=== PATIENT | male | born 1960 | race Caucasian/White ===

== ENCOUNTER 2018-09-17 13:07 | Emergency (ER) | payer SELFPAY ==
[2018-09-17] MEDS ORDERED: LOSA25TA57 PO (13:10)
[2018-09-17] MEDS ORDERED: MULT1TAB64 PO (13:10)
[2018-09-17] MEDS ORDERED: METF-452 PO (13:10)
[2018-09-17] MEDS ORDERED: FLUO-201 PO (13:10)
--- NOTE | 2018-09-17 13:12 | ER Report ---
History and Physical Time Seen By MD: 13:05 HPI/ROS CHIEF COMPLAINT: Bipolar HISTORY OF PRESENT ILLNESS: This is a 58-year-old male who presents to the emergency department via [place] [employer] seeking help for his manic episode. The patient lives in [facility], left yesterday and has not been seen since, his called the [place] [employer], they contacted the [place] [employer], he was found here in town, the Police Department asked the patient if he wanted to go to the hospital for evaluation. Patient states that he did want to come in, wants to be admitted to behavioral health unit and help with his manic phase of his bipolar disease, he also has been unable to sleep. No fevers or chills. No nausea or vomiting. No other complaints. Denies suicidal or homicidal ideation. REVIEW OF SYSTEMS: Constitutional: No fever, no chills. Eyes: No discharge. ENT: No sore throat. Cardiovascular: No chest pain, no palpitations. Respiratory: No cough, no shortness of breath. Gastrointestinal: No abdominal pain, no vomiting. Genitourinary: No hematuria. Musculoskeletal: No back pain. Skin: No rashes. Neurological: No headache. Psychological: As above. Allergies: Coded Allergies: No Known Drug Allergies (Unverified , 09/17/18) Home Meds Reported Medications Multivitamin (MULTI VITAMIN DAILY) 1 Each Tablet, 1 EACH PO 09/17/18 Fluoxetine Hcl (PROZAC) 10 Mg Capsule, 10 MG PO QDAY, CAPSULE 09/17/18 Metformin Hcl (METFORMIN HCL) 1,000 Mg Tablet, 1 TAB PO BID, TAB 09/17/18 Losartan Potassium (LOSARTAN POTASSIUM) 25 Mg Tablet, 25 MG PO QDAY 09/17/18 Past Medical/Surgical History Patient has a past medical and surgical history of hypertension, hernia repair, bipolar, previous suicide attempt. Reviewed Nurses Notes: Yes Constitutional Vital Sign - Last 24 Hours 09/17/18 09/17/18 09/17/18 09/17/18 13:10 13:30 14:00 14:33 Pulse 95 93 Resp 16 B/P (MAP) 172/95 159/93 (115) 172/93 (119) 163/92 (115) Pulse Ox 92 93 77 O2 Delivery Room Air 09/17/18 14:38 Pulse 82 Pulse Ox 96 Physical Exam General Appearance: The patient is alert, has no immediate need for airway protection and no signs of toxicity. Eyes: Pupils equal and round no pallor or injection. ENT, Mouth: Mucous membranes are moist. Respiratory: There are no retractions, lungs are clear to auscultation. Cardiovascular: Regular rate and rhythm. Gastrointestinal: Abdomen is soft and non tender, no masses, bowel sounds normal. Neurological: Alert and oriented 4. Moving all extremities. Following all commands. No focal neuro deficits. Skin: Warm and dry, no rashes. Musculoskeletal: Neck is supple non tender. Extremities are nontender, nonswollen and have full range of motion. Psychological: Patient is forthcoming with his feelings, denies suicidal or homicidal ideation. Making good eye contact, not aggressive, very cooperative. DIFFERENTIAL DIAGNOSIS: After history and physical exam differential diagnosis was considered for bipolar, homicidal and suicidal ideation. Medical Decision Making Data Points Result Diagram: 09/17/18 1350 09/17/18 1350 Laboratory Hematology Test 09/17/18 13:50 09/17/18 14:34 Red Blood Count 4.60 M/uL (4.00-5.60) Mean Corpuscular Volume 95.4 fL (80.0-96.0) Mean Corpuscular Hemoglobin 31.5 pg (26.0-33.0) Mean Corpuscular Hemoglobin Concent 33.0 g/dL (32.0-36.0) Red Cell Distribution Width 13.8 % (11.5-14.5) Mean Platelet Volume 8.3 fL (7.2-11.1) Neutrophils (%) (Auto) 62.5 % (39.4-72.5) Lymphocytes (%) (Auto) 24.9 % (17.6-49.6) Monocytes (%) (Auto) 10.3 % (4.1-12.4) Eosinophils (%) (Auto) 1.7 % (0.4-6.7) Basophils (%) (Auto) 0.6 % (0.3-1.4) Nucleated RBC Relative Count (auto) 0.0 /100WBC Neutrophils # (Auto) 5.6 K/uL (2.0-7.4) Lymphocytes # (Auto) 2.2 K/uL (1.3-3.6) Monocytes # (Auto) 0.9 K/uL (0.3-1.0) Eosinophils # (Auto) 0.2 K/uL (0.0-0.5) Basophils # (Auto) 0.0 K/uL (0.0-0.1) Nucleated RBC Absolute Count (auto) 0.00 K/uL Sodium Level 137 mmol/L (137-145) Potassium Level 3.9 mmol/L (3.5-5.0) Chloride Level 100 mmol/L (98-107) Carbon Dioxide Level 25 mmol/L (22-30) Blood Urea Nitrogen 11 mg/dl (9-21) Creatinine 0.80 mg/dl (0.66-1.25) Glomerular Filtration Rate Calc > 60.0 Random Glucose 153 mg/dl (75-110) Calcium Level 9.2 mg/dl (8.4-10.2) Magnesium Level 2.2 mg/dl (1.7-2.2) Total Bilirubin 0.7 mg/dl (0.2-1.3) Aspartate Amino Transf (AST/SGOT) 32 U/L (0-35) Alanine Aminotransferase (ALT/SGPT) 41 U/L (0-56) Alkaline Phosphatase 55 U/L (0-126) Total Protein 7.9 g/dl (6.3-8.2) Albumin 4.5 g/dl (3.5-5.0) Thyroid Stimulating Hormone (TSH) 1.47 uIU/ml (0.46-4.68) Salicylates Level < 10 mg/L Salicylate Last Dose Date unk Acetaminophen Level < 10 ug/ml Serum Alcohol < 10 mg/dl Urine Color Straw Urine Clarity Clear Urine pH 7.0 pH (4.8-9.5) Urine Specific [place] 1.003 Urine Protein Negative mg/dL (NEGATIVE) Urine Glucose (UA) Negative mg/dL (NEGATIVE) Urine Ketones Negative mg/dL (NEGATIVE) Urine Blood Negative (NEGATIVE) Urine Nitrite Negative (NEGATIVE) Urine Bilirubin Negative (NEGATIVE) Urine Urobilinogen Negative mg/dL (0.2-1.9) Urine Leukocyte Esterase Negative (NEGATIVE) Urine RBC <1 /HPF (0-2/HPF) Urine WBC <1 /HPF (0-5/HPF) Urine Squamous Epithelial Cells Few /LPF (</=FEW) Urine Bacteria Negative /HPF (NONE-FEW) Urine Mucus None /HPF (NONE-FEW) Urine Opiates Screen Negative Urine Barbiturates Screen Negative Ur Tricyclic Antidepressants Screen Negative Urine Phencyclidine Screen Negative Urine Amphetamines Screen Negative Urine Benzodiazepines Screen Negative Urine Cocaine Screen Negative Urine Cannabinoids Screen Negative Chemistry Test 09/17/18 13:50 09/17/18 14:34 White Blood Count 8.9 k/uL (4.5-11.0) Red Blood Count 4.60 M/uL (4.00-5.60) Hemoglobin 14.5 g/dL (14.0-18.0) Hematocrit 43.9 % (42.0-52.0) Mean Corpuscular Volume 95.4 fL (80.0-96.0) Mean Corpuscular Hemoglobin 31.5 pg (26.0-33.0) Mean Corpuscular Hemoglobin Concent 33.0 g/dL (32.0-36.0) Red Cell Distribution Width 13.8 % (11.5-14.5) Platelet Count 244 K/uL (150-450) Mean Platelet Volume 8.3 fL (7.2-11.1) Neutrophils (%) (Auto) 62.5 % (39.4-72.5) Lymphocytes (%) (Auto) 24.9 % (17.6-49.6) Monocytes (%) (Auto) 10.3 % (4.1-12.4) Eosinophils (%) (Auto) 1.7 % (0.4-6.7) Basophils (%) (Auto) 0.6 % (0.3-1.4) Nucleated RBC Relative Count (auto) 0.0 /100WBC Neutrophils # (Auto) 5.6 K/uL (2.0-7.4) Lymphocytes # (Auto) 2.2 K/uL (1.3-3.6) Monocytes # (Auto) 0.9 K/uL (0.3-1.0) Eosinophils # (Auto) 0.2 K/uL (0.0-0.5) Basophils # (Auto) 0.0 K/uL (0.0-0.1) Nucleated RBC Absolute Count (auto) 0.00 K/uL Glomerular Filtration Rate Calc > 60.0 Calcium Level 9.2 mg/dl (8.4-10.2) Magnesium Level 2.2 mg/dl (1.7-2.2) Total Bilirubin 0.7 mg/dl (0.2-1.3) Aspartate Amino Transf (AST/SGOT) 32 U/L (0-35) Alanine Aminotransferase (ALT/SGPT) 41 U/L (0-56) Alkaline Phosphatase 55 U/L (0-126) Total Protein 7.9 g/dl (6.3-8.2) Albumin 4.5 g/dl (3.5-5.0) Thyroid Stimulating Hormone (TSH) 1.47 uIU/ml (0.46-4.68) Salicylates Level < 10 mg/L Salicylate Last Dose Date unk Acetaminophen Level < 10 ug/ml Serum Alcohol < 10 mg/dl Urine Color Straw Urine Clarity Clear Urine pH 7.0 pH (4.8-9.5) Urine Specific [place] 1.003 Urine Protein Negative mg/dL (NEGATIVE) Urine Glucose (UA) Negative mg/dL (NEGATIVE) Urine Ketones Negative mg/dL (NEGATIVE) Urine Blood Negative (NEGATIVE) Urine Nitrite Negative (NEGATIVE) Urine Bilirubin Negative (NEGATIVE) Urine Urobilinogen Negative mg/dL (0.2-1.9) Urine Leukocyte Esterase Negative (NEGATIVE) Urine RBC <1 /HPF (0-2/HPF) Urine WBC <1 /HPF (0-5/HPF) Urine Squamous Epithelial Cells Few /LPF (</=FEW) Urine Bacteria Negative /HPF (NONE-FEW) Urine Mucus None /HPF (NONE-FEW) Urine Opiates Screen Negative Urine Barbiturates Screen Negative Ur Tricyclic Antidepressants Screen Negative Urine Phencyclidine Screen Negative Urine Amphetamines Screen Negative Urine Benzodiazepines Screen Negative Urine Cocaine Screen Negative Urine Cannabinoids Screen Negative Toxicology Test 09/17/18 13:50 09/17/18 14:34 Salicylates Level < 10 mg/L Salicylate Last Dose Date unk Acetaminophen Level < 10 ug/ml Serum Alcohol < 10 mg/dl Urine Opiates Screen Negative Urine Barbiturates Screen Negative Ur Tricyclic Antidepressants Screen Negative Urine Phencyclidine Screen Negative Urine Amphetamines Screen Negative Urine Benzodiazepines Screen Negative Urine Cocaine Screen Negative Urine Cannabinoids Screen Negative Urinalysis Test 09/17/18 14:34 Urine Color Straw Urine Clarity Clear Urine pH 7.0 pH (4.8-9.5) Urine Specific [place] 1.003 Urine Protein Negative mg/dL (NEGATIVE) Urine Glucose (UA) Negative mg/dL (NEGATIVE) Urine Ketones Negative mg/dL (NEGATIVE) Urine Blood Negative (NEGATIVE) Urine Nitrite Negative (NEGATIVE) Urine Bilirubin Negative (NEGATIVE) Urine Urobilinogen Negative mg/dL (0.2-1.9) Urine Leukocyte Esterase Negative (NEGATIVE) Urine RBC <1 /HPF (0-2/HPF) Urine WBC <1 /HPF (0-5/HPF) Urine Squamous Epithelial Cells Few /LPF (</=FEW) Urine Bacteria Negative /HPF (NONE-FEW) Urine Mucus None /HPF (NONE-FEW) ED Course/Re-evaluation ED Course The patient was admitted to room. A history and physical obtained. Differential diagnoses were considered. A CBC, CMP and psychiatric were collected, a urine tox screen and UA were collected, lab studies unremarkable, negative tox screen. The patient was evaluated by a clinical neuropsychologist. I did review the laboratory studies with the patient. I spoke with Dr. Villafana, the therapist literacy education professor, she is accepted the patient in the behavioral health unit. Patient will be admitted on a voluntary basis for bipolar poli. The patient did remain cooperative while in the emergency department. 09/17/2018 3:00:[address] Villafana was contacted, and we discussed the patient's case, she is accepting the patient in the behavioral health unit. Patient is agreeable has signed in voluntarily, patient will be admitted for poli. Decision to Disposition Date: Sep 17, 2018 Decision to Disposition Time: 14:56 Depart Departure Latest Vital Signs Vital Signs Date Time Temp Pulse Resp B/P (MAP) Pulse Ox O2 Delivery O2 Flow Rate FiO2 09/17/18 14:38 82 96 09/17/18 14:33 163/92 (115) 09/17/18 13:10 16 Room Air Impression: Primary Impression: Bipolar 1 disorder with moderate poli Condition: Improved Disposition: XFER TO [facility] JEFF BEEBE MANAGER PIPELINE-BC Sep 17, 2018 13:12
[2018-09-17 14:11] LABS: PLATELET COUNT, AUTOMATED 244 K/uL (150-450)
[2018-09-17 14:33] VITALS: BP 163/92
== END 2018-09-17 15:31 ==
LOC: ER 13:25
DX: F31.89 Other bipolar disorder (principal); I10 Essential (primary) hypertension
CPT/HCPCS: 36415; 80305; 80320; 80329; 81001; 82040; 82247; 82310; 82374; 82435; 82565; 82947; 83735; 84075; 84132; 84155; 84295; 84443; 84450; 84460; 84520; 85025; 99284

== ENCOUNTER 2018-09-17 15:22 | Inpatient (IN) | payer SELFPAY ==
[~2018-09-17] VITALS: Ht 172.7 cm; Wt 115.7 kg
[~2018-09-17 15:22] MED LIST: FLUO-201 PO; LOSA25TA57 PO; METF-452 PO; MULT1TAB64 PO
[2018-09-17] MEDS ORDERED: OLANZapine 10 MG VIAL IM ONLY PRN (16:10)
[2018-09-17] MEDS ORDERED: diphenhydrAMINE 50 MG/ML VIAL IM PRN (16:10)
[2018-09-17] MEDS ORDERED: MAG HYD/AL HYD/SIMETH 30ML UDC PO PRN (16:10)
[2018-09-17] MEDS ORDERED: NICOTINE POLACRILEX 4 MG LOZG PO PRN (16:10)
[2018-09-17] MEDS ORDERED: ACETAMINOPHEN 325 MG TAB PO PRN (16:10)
[2018-09-17] MEDS ORDERED: LORazepam 2 MG/ML VIAL IM PRN (16:10)
[2018-09-17] MEDS ORDERED: WATER STERILE 10 ML VIAL IM ONLY PRN (16:10)
[2018-09-17 16:41] VITALS: BP 159/90
[2018-09-17] MEDS: PRAVASTATIN SOD 20 MG TAB PO SCH (20:30)
[2018-09-17] MEDS: DIVALPROEX PO SCH (20:30)
[2018-09-17] MEDS: OLANZapine 5 MG TAB PO PRN (20:46)
[2018-09-17] MEDS: metFORMIN HCL 500 MG TAB PO SCH (20:46)
[2018-09-18] MEDS: OLANZapine 5 MG TAB PO PRN (02:38)
[2018-09-18 04:01] VITALS: BP 123/82
[2018-09-18] MEDS ORDERED: metFORMIN HCL 500 MG TAB PO SCH (08:00)
[2018-09-18] MEDS: LOSARTAN POTASSIUM 50 MG TAB PO SCH (08:36)
[2018-09-18] MEDS: MULTIVITAMINS PO SCH (08:36)
[2018-09-18] MEDS: metFORMIN HCL 500 MG TAB PO SCH ×2 (08:36→17:27)
[2018-09-18 10:05] VITALS: BP 132/81
[2018-09-18] MEDS: DIVALPROEX SOD DR 500 MG TAB PO SCH (12:30)
--- NOTE | 2018-09-18 20:06 | HISTORY AND PHYSICAL ---
DATE OF ADMISSION: September 17, 2018 ATTENDING PHYSICIAN Kimberly Villafana MD The patient was interviewed on September 18, 2018, at 10 a.m. for this history and physical. CHIEF COMPLAINT "I came at the request of my ." HISTORY OF PRESENT ILLNESS This is one of up to 20 psychiatric hospitalizations for this 58-year-old man who has a history of bipolar disorder and who is here as a voluntary patient. The patient was doing reasonably well and compliant with his medications which included Depakote, Saphris, and Prozac until about the beginning of August, which was a month ago. He stated sleeping poorly and staying up at night doing projects in the garage. His said he was getting a little bit more irritable, and they were quarreling more. He had a positive sleep apnea test and started a CPAP machine in the middle of August, and he has been struggling to get used to that. This weekend, he went over to his local hospital in [place] where he and his live, and they found that his Depakote level was low, and therefore, they increased his dose to 750 mg at bedtime. His says that on Saturday, he left and was gone all day shopping in various stores attempting to buy a new ocean clam boat captain which they did not need, attempting to buy a car which she says they did not need. He brought her hollis, and she says this was significantly increased spending and increased activity for him. 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 He says that he got in his car and was "following the setting sun by driving west," and he ended up in [place] Saturday night. Saturday, he drove over to [place] and tells us that he felt like he was on a mission to survey some properties. He then drove down to [place] and did call his and told her that he was going to buy a car. His sent the police, and he was picked up at a car dealership and brought to the Emergency Room. He acknowledges that he has had racing thoughts, difficulty sleeping. He has been doing six different things at once, staying up all night, unpacking all of his hobby stuff in the garage, including his [employer] radio equipment. He says that he feels he has been given special missions to drive around the state and survey. He denies hearing voices, but says he feels a pressure in his head. He acknowledges that he has been increasingly more noncompliant with his medications, taking them sporadically over the past two weeks. PAST PSYCHIATRIC HISTORY He was diagnosed with bipolar disorder in his mid 30s. He believes he may have been hospitalized as many as 20 times including hospitalizations in [place], [place], [place], [place], [place], [place]. Most recently, he has been seeing a nurse practitioner in [place], who has been prescribing his medication, and her name is Aretha Grangerjackie. His most recent admission prior to this one was one year ago about this time of year when he was hospitalized in [facility] in [place]. His says that ever since that hospitalization one year ago, he has been doing okay, but never fully returned to his best baseline. FAMILY PSYCHIATRIC HISTORY It is unknown if there is any family history for psychiatric illness. PAST MEDICAL HISTORY 1. Hypertension. 2. Prediabetic. 3. Surgery as an infant for hernia. 4. Surgery as an for a hydrocele. 5. Recent diagnosis of sleep apnea, uses CPAP machine. CURRENT MEDICATIONS 1. Saphris, dose unknown. 2. Depakote 750 mg at bedtime. 3. Hydroxyzine 20 mg at bedtime. 4. Fluoxetine 40 mg a.m. 5. Losartan 100 mg a.m. 6. Metformin 1000 mg b.i.d. 7. Pravastatin 20 mg at bedtime. ALLERGIES NKDA. SOCIAL HISTORY The patient was born in [place], [place], to parents who were . He has one half brother, one sister, and one brother. His father was an aircraft structural repairer. At the age of 6, he moved to [place]. He graduated high school in [place]. He did two years at [employer]. He remained unmarried until the age of 44. He has no biological children. He is currently to his for the past 14 years. He has four stepchildren and several grandchildren and great-grandchildren. He reports a good marriage and that his is supportive. 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 LEGAL HISTORY He has been on emergency detentions in the past, but never arrested for criminal activity. SUBSTANCE ABUSE HISTORY He consumes approximately one beer two or three times per week and one shot of hard liquor about once or twice a week. In the past, he used marijuana until he was in his 40s. He has no other history of substance abuse. PHYSICAL EXAMINATION Please see the ER physician's note. VITAL SIGNS: Temperature 98.6, pulse 97, respiratory rate 20, blood pressure 159/90, pulse ox is 93% on room air. LABORATORY DATA Sodium low, 136, random glucose high 140. The remainder of his chemistry panel is normal. Hemoglobin A1c high, 6.2. CBC within normal limits. Urinalysis within normal limits. Toxicology screen is negative. Serum alcohol is less than 10. MENTAL STATUS EXAMINATION He is a slightly disheveled, overweight man with a scruffy wright who is cooperative and has fair eye contact. His speech was not pressured and was normal in rate, tone, and volume. He reported a good mood, and his affect was somewhat hyperthymic. His thought process was quite circumstantial to tangential. He had a very hard time staying on topic. Thought content: He denied auditory hallucinations, but immediately said, "but there is a pressure in my head." He denies visual hallucinations. He has grandiose delusions about a mission that he has been sent on. There is no suicidal ideation and no homicidal ideation. He is alert and fully oriented to person, place, time, and situation. Memory was fairly intact for immediate, recent, and remote recall. Intelligence is average based on interview. Insight is good into having bipolar illness. Judgment is currently poor due to poli. IMPRESSION Bipolar disorder, manic phase. PLAN He was admitted to [facility]. He will attend individual and group therapies. We will increase his Depakote to 500 q.a.m. and 750 at bedtime and follow his Depakote levels. We will add Latuda 40 mg at bedtime for psychosis and for mood stability. We will discontinue Prozac, which is likely to be destabilizing his mood at this time. We will involve his in a treatment team meeting tomorrow morning, and we will have her bring his CPAP machine over so we can help him continue to get adjusted to it. His estimated length of stay is five to seven days. [facility]
[2018-09-18] MEDS: PRAVASTATIN SOD 20 MG TAB PO SCH (20:51)
[2018-09-18] MEDS: LURASIDONE 40 MG TAB PO SCH (20:52)
[2018-09-18] MEDS: DIVALPROEX PO SCH (20:52)
[2018-09-19 06:51] VITALS: BP 159/92
[2018-09-19] MEDS: MULTIVITAMINS PO SCH (08:00)
[2018-09-19] MEDS: DIVALPROEX SOD DR 500 MG TAB PO SCH (08:00)
[2018-09-19] MEDS: metFORMIN HCL 500 MG TAB PO SCH ×2 (08:00→17:11)
[2018-09-19] MEDS: LOSARTAN POTASSIUM 50 MG TAB PO SCH (08:00)
[2018-09-19 12:00] VITALS: BP 152/70
[2018-09-19] MEDS ORDERED: FLUO40CA67 PO (19:09)
[2018-09-19] MEDS ORDERED: HYDR-4225 PO (19:09)
[2018-09-19] MEDS ORDERED: DIVA500T47 PO (19:09)
[2018-09-19] MEDS ORDERED: DIVA250T33 PO (19:09)
[2018-09-19] MEDS ORDERED: LOSA100T75 PO (19:09)
--- NOTE | 2018-09-19 20:05 | BHS Progress Note ---
S - Subjective Progress Notes Subjective Pt seen in treatment team meeting with his and stepson present. Pt still showing manic symptoms, with grandiose delusions r.e. spirituality. "I am more inspired today spiritually I feel like when you just got out of the baptismal font." Asking his "Am I the energizer bunny?" "My sense of humor is still too high." Tolerating latuda and increased depakote well so far, a little sedated this am but not too bad-- participating well in our meeting. Did use C- Pap last night and slept a little better last night until 3:30 am when he woke up and couldn't fall back to sleep. Family indicating pt's hospitalizations have always been due to poli, but then later when he gets home he tends to "land on the depressed side." Then he gets put on an antidepressant which then seems to lead to mood instability... Will continue current meds for poli now; consider adding lamictal once poli resolves. Hgb A1c was 6.2. Will check labs again Saturday morning including valproate level. Suicidal Ideation: None Homicidal Ideation: None [facility] - Objective Physical Exam Vital Signs Vital Signs 09/19/18 12:00 Temp 98.6 Pulse 74 Resp 18 B/P (MAP) 152/70 (97) Pulse Ox 93 O2 Delivery Room Air Muscle Strength and Tone: WNL Gait and Station: Steady [facility] Medications Reviewed: Side Effects, Benefits of Medication, Risks Allergies Reviewed: Yes Mental Status Exam General Appearance: Casual, Well Groomed, Cooperative, Polite, Good Interaction Speech: Clear, Spontaneous, Normal Rate, Normal Rhythm, Normal Volume, Normal Tone Mood: Hyperthymic Affect: Full and Appropriate, Other (hyperthymic) Thought Process: Other (circumstantial) Thought Content: No Suicidal Ideation, No Homicidal Ideation; Delusions (voodoo preoccupation, grandiose, "mission to complete the survey.."); No Auditory Halllucinations, No Visual Hallucinations, No Thought Broadcasting, No Ideas of Reference, No Obsessions, No Compulsions, No Other Sensorium: Clear Cognition: Alert & Oriented-Person, Alert & Oriented-Place, Alert & Oriented- Time, [id number] Memory: Immediate, Recent, Remote Intelligence: Average Insight Judgment: Poor (due to poli) Result Diagram: 09/18/18 0637 Lab Hematology Test 09/18/18 06:37 Sodium Level 136 mmol/L (137-145) Potassium Level 4.6 mmol/L (3.5-5.0) Chloride Level 105 mmol/L (98-107) Carbon Dioxide Level 23 mmol/L (22-30) Blood Urea Nitrogen 11 mg/dl (9-21) Creatinine 0.80 mg/dl (0.66-1.25) Glomerular Filtration Rate Calc > 60.0 Random Glucose 140 mg/dl (75-110) Hemoglobin A1c 6.2 % (4.6-6.0) Calcium Level 9.0 mg/dl (8.4-10.2) Total Bilirubin 0.5 mg/dl (0.2-1.3) Aspartate Amino Transf (AST/SGOT) 21 U/L (0-35) Alanine Aminotransferase (ALT/SGPT) 35 U/L (0-56) Alkaline Phosphatase 42 U/L (0-126) Total Protein 6.7 g/dl (6.3-8.2) Albumin 3.9 g/dl (3.5-5.0) Chemistry Test 09/18/18 06:37 Glomerular Filtration Rate Calc > 60.0 Hemoglobin A1c 6.2 % (4.6-6.0) Calcium Level 9.0 mg/dl (8.4-10.2) Total Bilirubin 0.5 mg/dl (0.2-1.3) Aspartate Amino Transf (AST/SGOT) 21 U/L (0-35) Alanine Aminotransferase (ALT/SGPT) 35 U/L (0-56) Alkaline Phosphatase 42 U/L (0-126) Total Protein 6.7 g/dl (6.3-8.2) Albumin 3.9 g/dl (3.5-5.0) [facility] Assessment and Plan [id number] Encounter Date: Sep 19, 2018 [id number] Encounter Time: 11:00 [facility] Plan: Necessary Precautions, Individual/Group Therapy, Admin/Titrate Meds, Educate Patient Tobacco Medications: Not Appropriate Condition Multpiple Antipsychotics Used: No Problems: (1) Bipolar 1 disorder with moderate poli Status: Acute VLADIMIR FRITZ MD Sep 19, 2018 20:05
[2018-09-19] MEDS: PRAVASTATIN SOD 20 MG TAB PO SCH (20:51)
[2018-09-19] MEDS: DIVALPROEX PO SCH (20:52)
[2018-09-19] MEDS: LURASIDONE 40 MG TAB PO SCH (20:52)
[2018-09-20] MEDS: LORazepam 1 MG TAB PO PRN ×2 (00:24→22:45)
[2018-09-20 00:29] VITALS: BP 153/80
[2018-09-20] MEDS: MULTIVITAMINS PO SCH (07:48)
[2018-09-20] MEDS: metFORMIN HCL 500 MG TAB PO SCH ×2 (07:48→17:23)
[2018-09-20] MEDS: DIVALPROEX SOD DR 500 MG TAB PO SCH (07:48)
[2018-09-20] MEDS: LOSARTAN POTASSIUM 50 MG TAB PO SCH (07:48)
--- NOTE | 2018-09-20 09:03 | BHS Progress Note ---
BHS - Subjective Progress Notes Subjective "I'm optimistic. I have a little bit of nervousness because I talked to my employer and with my episode of poli I must not have told them about the time I wanted off." Works at [employer] in [place] since September 2014, had two conversations with management yesterday, may have to take day off without pay Denies depression or thoughts of hurting self Anxiety 09/17 Denies mood swings, racing thoughts, denies auditory/visual hallucinations is good support system Suicidal Ideation: None Homicidal Ideation: None BHS - Objective Physical Exam Vital Signs Allergies Coded Allergies No Known Drug Allergies (Unverified09/17/18) Deferred Medications (Trade) Dose Ordered Sig/Kenneth Route PRN Reason Start Time Stop Time Status Last Admin Dose Admin Divalproex Sodium (Depakote Dr 500 Mg Tab (Or Equiv)) 500 mg QAM PO 09/18/18 12:25 10/18/18 12:24 09/20/18 07:48 Divalproex Sodium (Depakote Dr 500 Mg Tab (Or Equiv)/ Depakote Dr 250 Mg Tab (Or Equiv)) 750 mg QHS PO 09/17/18 21:00 10/17/18 20:59 09/19/18 20:52 Lorazepam (Ativan(*) 1 Mg Tab (Or Equiv)) 2 mg Q6H PRN PO ANXIETY/SLEEP 09/17/18 16:15 10/01/18 16:14 09/20/18 00:24 Losartan Potassium (Cozaar 50 Mg Tab (Or Equiv)) 100 mg QDAY PO 09/18/18 09:00 10/18/18 08:59 09/20/18 07:48 Lurasidone HCl (Latuda 40 Mg Tab(Or Equiv)) 40 mg QHS PO 09/18/18 21:00 10/18/18 20:59 09/19/18 20:52 Metformin HCl (Glucophage(*) 500 Mg Tab (Or Equiv)) 1,000 mg BIDBS PO 09/17/18 21:00 10/17/18 20:59 09/20/18 07:48 Multivitamins (Thera-M Enhanced Tab (Or Equiv)) 1 each QDAY PO 09/18/18 09:00 10/18/18 08:59 09/20/18 07:48 Olanzapine (zyPREXA (OR EQUIV)) 10 mg Q6H PRN PO AGITATION/SLEEP 09/17/18 16:15 10/17/18 16:14 09/18/18 02:38 Pravastatin Sodium (Pravachol 20 Mg Tab (Or Equiv)) 20 mg HS PO 09/17/18 21:00 10/17/18 20:59 09/19/18 20:51 Muscle Strength and Tone: WNL Gait and Station: Steady [facility] Medications Reviewed: Side Effects, Benefits of Medication, Risks Allergies Reviewed: Yes Mental Status Exam General Appearance: Casual, Well Groomed, Good Eye Contact, Cooperative, Polite, Good Interaction Speech: Clear, Spontaneous, Normal Rate, Normal Rhythm, Normal Volume, Normal Tone Mood: Euthymic; No Hyperthymic Affect: Full and Appropriate; No Other (hyperthymic) Thought Process: Organized, Logical, Goal Directed; No Other (circumstantial) Thought Content: No Suicidal Ideation, No Homicidal Ideation; Delusions (pentecostal preoccupation, grandiose, "mission to complete the survey.."); No Auditory Halllucinations, No Visual Hallucinations, No Thought Broadcasting, No Ideas of Reference, No Obsessions, No Compulsions, No Other Sensorium: Clear Cognition: Alert & Oriented-Person, Alert & Oriented-Place, Alert & Oriented-Time, Yuveo-Gbgxslsh-Gktjlipmw Memory: Immediate, Recent, Remote Intelligence: Average Insight Judgment: No Poor (due to poli); Fair Result Diagram: 09/18/18 0637 Microbiology Laboratory Tests 09/18/18 06:37 Laboratory Tests 09/18/18 06:37: Sodium Level 136, Potassium Level 4.6, Chloride Level 105, Carbon Dioxide Level 23, Blood Urea Nitrogen 11, Creatinine 0.80, Glomerular Filtration Rate Calc > 60.0, Random Glucose 140, Hemoglobin A1c 6.2, Calcium Level 9.0, Total Bilirubin 0.5, Aspartate Amino Transf (AST/SGOT) 21, Alanine Aminotransferase (ALT/SGPT) 35, Alkaline Phosphatase 42, Total Protein 6.7, Albumin 3.9 [facility] Assessment and Plan Cwcf-yo-Peyv Encounter Date: Sep 20, 2018 Nnst-cv-Rwlm Encounter Time: 09:01 [facility] Plan: Necessary Precautions, Individual/Group Therapy, Admin/Titrate Meds, Educate Patient Tobacco Medications: Not Appropriate Condition Multpiple Antipsychotics Used: No Problems: (1) Bipolar 1 disorder with moderate poli Status: Acute Condition Continue Depakote 500mg am, 750mg pm and Latuda 40mg pm Will evaluate labs 09/21/18 Continue current medications, maintain precautions Treatment team 09/22/18 MAGY ZULETA NP Sep 20, 2018 09:03
[2018-09-20 14:35] VITALS: BP 152/66
[2018-09-20] MEDS: LURASIDONE 40 MG TAB PO SCH (20:46)
[2018-09-20] MEDS: DIVALPROEX PO SCH (20:46)
[2018-09-20] MEDS: PRAVASTATIN SOD 20 MG TAB PO SCH (20:46)
[2018-09-20 22:30] VITALS: BP 158/80
[2018-09-21 04:46] VITALS: BP 144/87
[2018-09-21 06:32] LABS: PLATELET COUNT, AUTOMATED 220 K/uL (150-450)
[2018-09-21] MEDS: DIVALPROEX SOD DR 500 MG TAB PO SCH (08:28)
[2018-09-21] MEDS: metFORMIN HCL 500 MG TAB PO SCH ×2 (08:28→17:51)
[2018-09-21] MEDS: LOSARTAN POTASSIUM 50 MG TAB PO SCH (08:28)
[2018-09-21] MEDS: MULTIVITAMINS PO SCH (08:28)
--- NOTE | 2018-09-21 11:31 | BHS Progress Note ---
S - Subjective Progress Notes Subjective "I'm doing good. I haven't felt this good in a long time." Anxiety 07/20, denies depression, anger or irritability Works at [employer] in [place] since September 2014, had two conversations with management Saturday. Sleep sufficient, energy level good, motivated to work towards discharge Denies mood swings, racing thoughts, denies auditory/visual hallucinations is good support system Suicidal Ideation: None Homicidal Ideation: None S - Objective Physical Exam Vital Signs Laboratory Tests 09/21/18 06:21 Laboratory Tests 09/18/18 06:37: Hemoglobin A1c 6.2 09/21/18 06:21: White Blood Count 7.8, Red Blood Count 4.30, Hemoglobin 13.6, Hematocrit 41.2, Mean Corpuscular Volume 95.6, Mean Corpuscular Hemoglobin 31.6, Mean Corpuscular Hemoglobin Concent 33.0, Red Cell Distribution Width 13.6, Platelet Count 220, Mean Platelet Volume 8.2, Neutrophils (%) (Auto) 53.6, Lymphocytes (%) (Auto) 33.5, Monocytes (%) (Auto) 9.1, Eosinophils (%) (Auto) 3.1, Basophils (%) (Auto) 0.7, Nucleated RBC Relative Count (auto) 0.0, Neutrophils # (Auto) 4.2, Lymphocytes # (Auto) 2.6, Monocytes # (Auto) 0.7, Eosinophils # (Auto) 0.2, Basophils # (Auto) 0.1, Nucleated RBC Absolute Count (auto) 0.00, Sodium Level 135, Potassium Level 4.2, Chloride Level 102, Carbon Dioxide Level 21, Blood Urea Nitrogen 12, Creatinine 0.80, Glomerular Filtration Rate Calc > 60.0, Random Glucose 185, Calcium Level 9.2, Total Bilirubin 0.4, Aspartate Amino Transf (AST/SGOT) 19, Alanine Aminotransferase (ALT/SGPT) 32, Alkaline Phosphatase 44, Total Protein 6.7, Albumin 3.9, Valproic Acid (Depakene) Level 75.6 Medications (Trade) Dose Ordered Sig/Kenneth Route PRN Reason Start Time Stop Time Status Last Admin Dose Admin Divalproex Sodium (Depakote Dr 500 Mg Tab (Or Equiv)) 500 mg QAM PO 09/18/18 12:25 10/18/18 12:24 09/21/18 08:28 Divalproex Sodium (Depakote Dr 500 Mg Tab (Or Equiv)/ Depakote Dr 250 Mg Tab (Or Equiv)) 750 mg QHS PO 09/17/18 21:00 10/17/18 20:59 09/20/18 20:46 Lorazepam (Ativan(*) 1 Mg Tab (Or Equiv)) 2 mg Q6H PRN PO ANXIETY/SLEEP 09/17/18 16:15 10/01/18 16:14 09/20/18 22:45 Losartan Potassium (Cozaar 50 Mg Tab (Or Equiv)) 100 mg QDAY PO 09/18/18 09:00 10/18/18 08:59 09/21/18 08:28 Lurasidone HCl (Latuda 40 Mg Tab(Or Equiv)) 40 mg QHS PO 09/18/18 21:00 10/18/18 20:59 09/20/18 20:46 Metformin HCl (Glucophage(*) 500 Mg Tab (Or Equiv)) 1,000 mg BIDBS PO 09/17/18 21:00 10/17/18 20:59 09/21/18 08:28 Multivitamins (Thera-M Enhanced Tab (Or Equiv)) 1 each QDAY PO 09/18/18 09:00 10/18/18 08:59 09/21/18 08:28 Olanzapine (zyPREXA (OR EQUIV)) 10 mg Q6H PRN PO AGITATION/SLEEP 09/17/18 16:15 10/17/18 16:14 09/18/18 02:38 Pravastatin Sodium (Pravachol 20 Mg Tab (Or Equiv)) 20 mg HS PO 09/17/18 21:00 10/17/18 20:59 09/20/18 20:46 Vital Signs Date Time Temp Pulse Resp B/P (MAP) Pulse Ox O2 Delivery O2 Flow Rate FiO2 09/21/18 04:46 98.1 88 16 144/87 (106) 92 Room Air Muscle Strength and Tone: WNL Gait and Station: Steady [facility] Medications Reviewed: Side Effects, Benefits of Medication, Risks Allergies Reviewed: Yes Mental Status Exam General Appearance: Casual, Well Groomed, Good Eye Contact, Cooperative, Polite, Good Interaction Speech: Clear, Spontaneous, Normal Rate, Normal Rhythm, Normal Volume, Normal Tone Mood: Euthymic; No Hyperthymic Affect: Full and Appropriate; No Other (hyperthymic) Thought Process: Organized, Logical, Goal Directed; No Other (circumstantial) Thought Content: No Suicidal Ideation, No Homicidal Ideation; Delusions (bahai preoccupation, grandiose, "mission to complete the survey.."); No Aud itory Halllucinations, No Visual Hallucinations, No Thought Broadcasting, No Ideas of Reference, No Obsessions, No Compulsions, No Other Sensorium: Clear Cognition: Alert & Oriented-Person, Alert & Oriented-Place, Alert & Oriented- Time, Zdive-Uzzjyghz-Cmndsqpii Memory: Immediate, Recent, Remote Intelligence: Average Insight Judgment: No Poor (due to poli); Fair Result Diagram: 09/21/1862009/21/18620 Lab Vital Signs Date Time Temp Pulse Resp B/P (MAP) Pulse Ox O2 Delivery O2 Flow Rate FiO2 09/21/18 04:46 98.1 88 16 144/87 (106) 92 Room Air BHS Assessment and Plan Omdw-ut-Gvdy Encounter Date: Sep 21, 2018 Plkw-ui-Lwcd Encounter Time: 11:04 BHS Plan: Necessary Precautions, Individual/Group Therapy, Admin/Titrate Meds, Educate Patient Tobacco Medications: Not Appropriate Condition Multpiple Antipsychotics Used: No Problems: (1) Bipolar 1 disorder with moderate poli Status: Acute Condition Continue current medication including Depakote bid, Lurasidone q pm Maintain precautions Treatment team 09/22/18 MAGY ZULETA NP Sep 21, 2018 11:31
[2018-09-21 14:50] VITALS: BP 174/88
[2018-09-21] MEDS: LURASIDONE 40 MG TAB PO SCH (20:37)
[2018-09-21] MEDS: DIVALPROEX PO SCH (20:37)
[2018-09-21] MEDS: PRAVASTATIN SOD 20 MG TAB PO SCH (20:37)
[2018-09-21 21:08] VITALS: BP 146/82
[2018-09-21] MEDS: LORazepam 1 MG TAB PO PRN (22:18)
[2018-09-22 06:19] VITALS: BP 161/85
[2018-09-22 07:48] VITALS: BP 142/86
[2018-09-22] MEDS: DIVALPROEX SOD DR 500 MG TAB PO SCH (07:49)
[2018-09-22] MEDS: metFORMIN HCL 500 MG TAB PO SCH (07:49)
[2018-09-22] MEDS: MULTIVITAMINS PO SCH (07:49)
[2018-09-22] MEDS: LOSARTAN POTASSIUM 50 MG TAB PO SCH (07:49)
[2018-09-22] MEDS ORDERED: PRAV20TA65 PO (10:47)
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
== END 2018-09-22 11:03 | disposition home or self-care (01) | DRG 885 ==
LOC: BHS 15:22
PROVIDERS: ADMIT Psychiatry & Neurology Psychiatry; ATTEND Psychiatry & Neurology Psychiatry
DX: F30.12 Manic episode without psychotic symptoms, moderate (principal); G47.30 Sleep apnea, unspecified; I10 Essential (primary) hypertension; R73.03 Prediabetes; Z79.84 Long term (current) use of oral hypoglycemic drugs
CPT/HCPCS: 36415; 80164; 82040; 82247; 82310; 82374; 82435; 82565; 82947; 83036; 84075; 84132; 84155; 84295; 84450; 84460; 84520; 85025

== ENCOUNTER 2018-09-24 11:30 | Inpatient (IN) | payer BC ==
[~2018-09-24] VITALS: Ht 172.7 cm; Wt 115.7 kg
[~2018-09-24 11:30] MED LIST changes: +DIVA250T33 PO; +DIVA500T47 PO; +FLUO40CA67 PO; +HYDR-4225 PO; +LOSA100T75 PO; +PRAV20TA65 PO
[2018-09-24] MEDS ORDERED: MAG HYD/AL HYD/SIMETH 30ML UDC PO PRN (13:45)
[2018-09-24] MEDS ORDERED: QUET100T PO (15:47)
[2018-09-24] MEDS: metFORMIN HCL 500 MG TAB PO SCH (17:17)
[2018-09-24] MEDS: hydrOXYzine PAMOATE 25 MG CAP PO SCH (20:25)
[2018-09-24] MEDS: QUEtiapine FUM 100 MG TAB PO SCH (20:25)
[2018-09-24] MEDS ORDERED: DIVALPROEX SOD ER 500 MG TABSR PO SCH (21:00)
[2018-09-25 03:36] VITALS: BP 153/84
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
[2018-09-25] MEDS: PRAVASTATIN SOD 20 MG TAB PO SCH (08:16)
[2018-09-25] MEDS: LOSARTAN POTASSIUM 50 MG TAB PO SCH (08:16)
[2018-09-25] MEDS: metFORMIN HCL 500 MG TAB PO SCH ×2 (08:16→16:49)
[2018-09-25] MEDS: MULTIVITAMINS TAB PO SCH (08:17)
[2018-09-25] MEDS ORDERED: DIVALPROEX SOD ER 500 MG TABSR PO SCH (09:00)
--- NOTE | 2018-09-25 11:54 | BHS Progress Note ---
[facility] - Subjective Progress Notes Subjective Isaías slept restlessly last night. Staff reports he was up a lot. He believes he got to sleep about 12:45 and was up at 6 am. He continues to notice manic symptoms but feels better overall. I questioned Isaías, today, about his medication history. He has had many different mental health providers which is probably a factor in his many relapses. He believes that he has been taking Depakote during his most recent r elapses. We talked about trying lithium again since he has not been on it in many years--perhaps not since 1983. We also discussed the relative side effect burden of both drugs. Both can certainly cause weight gain, but Isaías has having to take Seroquel with the Depakote which is doubly difficult. If he could be managed on lithium monotherapy, this might be preferable fro that standpoint. Suicidal Ideation: None Homicidal Ideation: None [facility] - Objective Physical Exam Vital Signs Vital Signs 09/25/18 03:36 Temp 97.9 Pulse 94 Resp 15 B/P (MAP) 153/84 (107) Pulse Ox 90 O2 Delivery Room Air Muscle Strength and Tone: WNL Gait and Station: Steady [facility] Medications Reviewed: Side Effects, Benefits of Medication, Risks Allergies Reviewed: Yes Mental Status Exam General Appearance: Casual, Well Groomed, Good Eye Contact, Cooperative, Polite, Good Interaction Speech: Clear, Spontaneous, Normal Rate, Normal Rhythm, Normal Volume, Normal Tone Mood: Hyperthymic Affect: Full and Appropriate Thought Process: Organized, Logical, Goal Directed Thought Content: No Suicidal Ideation, No Homicidal Ideation, No Delusions, No Auditory Halllucinations, No Visual Hallucinations Sensorium: Clear Cognition: Alert & Oriented-Person, Alert & Oriented-Place, Alert & Oriented- Time, Dhkih-Sgeyrfzd-Luskvvrqn Memory: Immediate, Recent, Remote Intelligence: Average Insight Judgment: Good Lab Medications (Trade) Dose Ordered Sig/Kenneth Route PRN Reason Start Time Stop Time Status Last Admin Dose Admin Divalproex Sodium (Depakote Er 500 Mg Tabsr (Or Equiv)) 1,000 mg HS PO 09/24/18 21:00 10/24/18 20:59 09/24/18 20:25 Hydroxyzine Pamoate (Vistaril(*) 25 Mg Cap (Or Equiv)) 25 mg HS PO 09/24/18 21:00 10/24/18 20:59 09/24/18 20:25 Losartan Potassium (Cozaar 50 Mg Tab (Or Equiv)) 100 mg QDAY PO 09/25/18 09:00 10/25/18 08:59 09/25/18 08:16 Metformin HCl (Glucophage(*) 500 Mg Tab (Or Equiv)) 1,000 mg BIDBS PO 09/24/18 17:00 10/24/18 16:59 09/25/18 08:16 Multivitamins (Thera-M Enhanced Tab (Or Equiv)) 1 each QDAY PO 09/25/18 09:00 10/25/18 08:59 09/25/18 08:17 Pravastatin Sodium (Pravachol 20 Mg Tab (Or Equiv)) 20 mg QDAY PO 09/25/18 09:00 10/25/18 08:59 09/25/18 08:16 Quetiapine Fumarate (SEROquel 100 MG TAB (OR EQUIV)) 100 mg QHS PO 09/24/18 21:00 10/24/18 20:59 09/24/18 20:25 S Assessment and Plan Brjn-kb-Ponz Encounter Date: Sep 25, 2018 Jgzt-vd-Kbgk Encounter Time: 10:30 [facility] Plan: Necessary Precautions, Individual/Group Therapy, Admin/Titrate Meds Tobacco Medications: Not Appropriate Condition Problems: (1) Bipolar 1 disorder with moderate poli Status: Acute Assessment & Plan: After discussing risks and benefits, we agreed to begin a trial of lithium starting with 300 mgs three times daily. I will begin a cross taper of Depakote now while continuing Seroquel in the interim. (2) Obstructive sleep apnea on CPAP (3) Diabetes mellitus type 2 in obese Assessment & Plan: check blood sugars ac and hs. Condition Poli is better, however, it is worrisome that Isaías relapsed so soon after discharge and has had so many episodes of mood instability on Depakote. He suffers from inconsistent follow-up and it is essential for him to get established with an outpatient psychiatric provider who is experienced in treating bipolar I disorder and stay with that person. RAMAN REYNAGA DO Sep 25, 2018 11:54
[2018-09-25] MEDS: LITHIUM CARBONATE 300 MG CAP PO SCH ×2 (15:02→20:38)
[2018-09-25] MEDS: DIVALPROEX SOD ER 500 MG TABSR PO SCH (20:37)
[2018-09-25] MEDS: hydrOXYzine PAMOATE 25 MG CAP PO SCH (20:38)
[2018-09-25] MEDS: QUEtiapine FUM 100 MG TAB PO SCH (20:39)
[2018-09-26] MEDS: ACETAMINOPHEN 325 MG TAB PO PRN (00:56)
[2018-09-26 04:45] VITALS: BP 139/71
[2018-09-26] MEDS: DIVALPROEX SOD ER 500 MG TABSR PO SCH ×2 (08:03→21:32)
[2018-09-26] MEDS: LOSARTAN POTASSIUM 50 MG TAB PO SCH (08:03)
[2018-09-26] MEDS: metFORMIN HCL 500 MG TAB PO SCH ×2 (08:03→17:00)
[2018-09-26] MEDS: PRAVASTATIN SOD 20 MG TAB PO SCH (08:04)
[2018-09-26] MEDS: LITHIUM CARBONATE 300 MG CAP PO SCH ×2 (08:04→21:32)
[2018-09-26] MEDS: MULTIVITAMINS TAB PO SCH (08:04)
--- NOTE | 2018-09-26 16:06 | BHS Progress Note ---
[facility] - Subjective Progress Notes Subjective We met with Isaías this morning in treatment team and included his by phone. Isaías slept about seven hours last night6. He does not feel depressed or suicidal. He is better as far as his racing thoughts and working with us to accomplish the medication transition we discussed. We talked about the changes we have made with his and, especially, the need for appropriate follow-up. The plan is for Isaías to go to [facility] in [place] and to see one of their providers, preferably Dr. Desai, via the telemedicine system. In anticipation of this, I called Dr. Desai in [place] and discussed my plans for Isaías. She is happy to see him for medication management through the office in [place]. Isaías will need to go in for intake as soon as he is released from [facility]. Suicidal Ideation: None Homicidal Ideation: None [facility] - Objective Physical Exam Vital Signs Vital Signs 09/26/18 04:45 Temp 98.2 Pulse 96 Resp 15 B/P (MAP) 139/71 (93) Pulse Ox 90 O2 Delivery Room Air Muscle Strength and Tone: WNL Gait and Station: Steady [facility] Medications Reviewed: Side Effects, Benefits of Medication, Risks Allergies Reviewed: Yes Mental Status Exam General Appearance: Casual, Well Groomed, Good Eye Contact, Cooperative, Polite, Good Interaction Speech: Clear, Spontaneous, Normal Rate, Normal Rhythm, Normal Volume, Normal Tone Mood: Hyperthymic Affect: Full and Appropriate Thought Process: Organized, Logical, Goal Directed Thought Content: No Suicidal Ideation, No Homicidal Ideation, No Delusions, No Auditory Halllucinations, No Visual Hallucinations Sensorium: Clear Cognition: Alert & Oriented-Person, Alert & Oriented-Place, Alert & Oriented- Time, Ujtbt-Xryvczua-Kfvdjhfuw Memory: Immediate, Recent, Remote Intelligence: Average Insight Judgment: Good Lab Hematology Test 09/26/18 11:52 Whole Blood Glucose 109 mg/DL (75-110) Chemistry Test 09/26/18 11:52 Whole Blood Glucose 109 mg/DL (75-110) [facility] Assessment and Plan Xlse-uk-Jmpr Encounter Date: Sep 26, 2018 Fdjq-is-Cagl Encounter Time: 09:24 [facility] Plan: Necessary Precautions, Individual/Group Therapy, Admin/Titrate Meds Tobacco Medications: Not Appropriate Condition Problems: (1) Bipolar 1 disorder with moderate poli Status: Acute Assessment & Plan: Continue upward titration of lithium and tapering Depakote with Seroquel in the interim (2) Obstructive sleep apnea on CPAP Status: Chronic (3) Diabetes mellitus type 2 in obese Status: Chronic Condition We are continuing to advance lithium and taper Depakote. I also spoke to Dr. Desai who agreed to follow Rajesh in [place] once he is released from [facility]. She will make room in her schedule for him anticipating his release next week. RAMAN REYNAGA DO Sep 26, 2018 16:06
[2018-09-26] MEDS: QUEtiapine FUM 100 MG TAB PO SCH (21:32)
[2018-09-26] MEDS: hydrOXYzine PAMOATE 25 MG CAP PO SCH (21:32)
[2018-09-27] MEDS: ACETAMINOPHEN 325 MG TAB PO PRN (01:42)
[2018-09-27] MEDS: DIVALPROEX SOD ER 500 MG TABSR PO SCH (08:02)
[2018-09-27] MEDS: PRAVASTATIN SOD 20 MG TAB PO SCH (08:02)
[2018-09-27] MEDS: metFORMIN HCL 500 MG TAB PO SCH ×3 (08:02→17:04)
[2018-09-27] MEDS: LOSARTAN POTASSIUM 50 MG TAB PO SCH (08:02)
[2018-09-27] MEDS: MULTIVITAMINS TAB PO SCH (08:02)
[2018-09-27] MEDS: LITHIUM CARBONATE 300 MG CAP PO SCH ×2 (08:02→20:55)
[2018-09-27 09:19] VITALS: BP 146/71
--- NOTE | 2018-09-27 10:19 | BHS Progress Note ---
[facility] - Subjective Progress Notes Subjective Isaías is feeling better. He is not depressed. No anger. Has some anxiety, but it is minimal. Isaías feels his poli is resolving. Still a few racing thoughts. He slept well last night. [place] level this morning is 0.3. We talked, again, about the side effects of lithium and the importance of monitoring renal and thyroid function as well as levels. I told Isaías that I spoke to Dr. Desai about monitoring his psychiatric treatment. We also addressed the other aspects of aftercare planning. Emphasized the need for medical follow-up as well. Isaías has identified a provider in [place] he would like ot see for this purpose. Suicidal Ideation: None Homicidal Ideation: None [facility] - Objective Physical Exam Vital Signs Vital Signs 09/26/18 09/27/18 04:45 09:19 Temp 98.2 Pulse 90 Resp 15 B/P (MAP) 146/71 (96) Pulse Ox 90 O2 Delivery Room Air Muscle Strength and Tone: WNL Gait and Station: Steady [facility] Medications Reviewed: Side Effects, Benefits of Medication, Risks Allergies Reviewed: Yes Mental Status Exam General Appearance: Casual, Well Groomed, Good Eye Contact, Cooperative, Polite, Good Interaction Speech: Clear, Spontaneous, Normal Rate, Normal Rhythm, Normal Volume, Normal Tone Mood: Euthymic Affect: Full and Appropriate Thought Process: Organized, Logical, Goal Directed Thought Content: No Suicidal Ideation, No Homicidal Ideation, No Delusions, No Auditory Halllucinations, No Visual Hallucinations Sensorium: Clear Cognition: Alert & Oriented-Person, Alert & Oriented-Place, Alert & Oriented- Time, Exdhw-Faucasbg-Olwnwpvvl Memory: Immediate, Recent, Remote Intelligence: Average Insight Judgment: Good Lab Hematology Test 09/26/18 11:52 09/27/18 05:52 Whole Blood Glucose 109 mg/DL (75-110) [place] Level 0.3 mmol/L (0.6-1.2) Chemistry Test 09/26/18 11:52 09/27/18 05:52 Whole Blood Glucose 109 mg/DL (75-110) [place] Level 0.3 mmol/L (0.6-1.2) Toxicology Test 09/27/18 05:52 [place] Level 0.3 mmol/L (0.6-1.2) [facility] Assessment and Plan Mxjk-mb-Ierv Encounter Date: Sep 27, 2018 Ynvk-xv-Xvee Encounter Time: 10:13 [facility] Plan: Necessary Precautions, Individual/Group Therapy, Admin/Titrate Meds Tobacco Medications: Not Appropriate Condition Problems: (1) Bipolar 1 disorder with moderate poli Status: Acute Assessment & Plan: Increase lithium to 600 mgs BID starting tomorrow. Give an additional 300 mgs tonight. Level on Saturday. Reduce Depakote to 500mgs daily. Continue Seroquel for now. (2) Obstructive sleep apnea on CPAP Status: Chronic (3) Diabetes mellitus type 2 in obese Status: Chronic Condition Poli is resolving. We are working on getting the lithium dose titrated and tapering off of Depakote. Recommend continuing Seroquel for a short time following discharge, then stopping it. RAMAN REYNAGA DO Sep 27, 2018 10:19
--- NOTE | 2018-09-27 19:40 | NUR ---
REPORT FROM ADRIÁN/PRACHI. WILL ASSUME CARE OF PT AT THIS TIME. PT JUST GOT OFF A PHONE CALL AND IS NOW RESTING IN ROOM, READING A MAGAZINE. PT STATES HE HAD A GOOD DAY, NO COMPLAINTS.
[2018-09-27] MEDS: hydrOXYzine PAMOATE 25 MG CAP PO SCH (20:55)
[2018-09-27] MEDS: QUEtiapine FUM 100 MG TAB PO SCH (20:55)
[2018-09-28] MEDS: PRAVASTATIN SOD 20 MG TAB PO SCH (08:02)
[2018-09-28] MEDS: metFORMIN HCL 500 MG TAB PO SCH ×2 (08:03→16:46)
[2018-09-28] MEDS: DIVALPROEX SOD ER 500 MG TABSR PO SCH (08:03)
[2018-09-28] MEDS: LITHIUM CARBONATE 300 MG CAP PO SCH ×2 (08:03→20:37)
[2018-09-28] MEDS: MULTIVITAMINS TAB PO SCH (08:03)
[2018-09-28] MEDS: LOSARTAN POTASSIUM 50 MG TAB PO SCH (08:03)
--- NOTE | 2018-09-28 11:13 | BHS Progress Note ---
[facility] - Subjective Progress Notes Subjective "I feel ok. I would like to attend the [facility] service and if I can't I request to leave AMA." Client presented this am voicing request to leave the unit and attend a catholic service located on another unit. He voiced that if he was not permitted to do so he would like to leave the unit. The hospital split and drum room supervisor actually came to the unit to hold a catholic service for the admitted patients and he was pleased with this, no longer requesting to leave AMA. He voiced understanding that he is not ready for discharge at this time as we are currently cross tapering onto [place]. He rates depression level a 0, SI 0, anxiety 0. He reports that he was able to sleep fairly well last night and that although he woke 2-3 times in the night he was able to fall back to sleep. He denies major concerns today and he was able to attend the catholic service on the unit. Suicidal Ideation: None Homicidal Ideation: None [facility] - Objective Physical Exam Vital Signs Vital Signs Date Time Temp Pulse Resp B/P (MAP) Pulse Ox O2 Delivery O2 Flow Rate FiO2 09/27/18 09:19 98.2 90 146/71 (96) 90 Room Air 09/26/18 04:45 15 Muscle Strength and Tone: WNL Gait and Station: Steady [facility] Medications Reviewed: Side Effects, Benefits of Medication, Risks Allergies Reviewed: Yes Mental Status Exam General Appearance: Casual, Well Groomed, Good Eye Contact, Cooperative, Polite, Good Interaction Speech: Clear, Spontaneous, Normal Rate, Normal Rhythm, Normal Volume, Normal Tone Mood: Euthymic Affect: Full and Appropriate Thought Process: Organized, Logical, Goal Directed Thought Content: No Suicidal Ideation, No Homicidal Ideation, No Delusions, No Auditory Halllucinations, No Visual Hallucinations Sensorium: Clear Cognition: Alert & Oriented-Person, Alert & Oriented-Place, Alert & Oriented- Time, Hjcge-Eyklgdvq-Pttvzlsat Memory: Immediate, Recent, Remote Intelligence: Average Insight Judgment: Good S Assessment and Plan Xyrn-tr-Mcvz Encounter Date: Sep 28, 2018 Mwuk-tg-Vozx Encounter Time: 09:15 [facility] Plan: Necessary Precautions, Individual/Group Therapy, Admin/Titrate Meds Tobacco Medications: Not Appropriate Condition Multpiple Antipsychotics Used: No Problems: (1) Bipolar 1 disorder with moderate poli Status: Acute Condition He is tolerating medication titration onto lithium with depakote taper. He is overall pleasant and cooperative and denies SI/HI/hallucinations. Staff will need to continue to monitor and encourage appropriate boundaries for this patie nt. Continue discharge planning. NAKUL VELÁSQUEZ NP Sep 28, 2018 11:13
[2018-09-28 17:58] VITALS: BP 158/78
--- NOTE | 2018-09-28 19:36 | NUR ---
REPORT FROM ADRIÁN/PRACHI. WILL ASSUME CARE OF PT AT THIS TIME. PT CURRENTLY IN TV ROOM WATCHING [employer]. NO DISTRESS NOTED AT THIS TIME.
[2018-09-28] MEDS: hydrOXYzine PAMOATE 25 MG CAP PO SCH (20:37)
[2018-09-28] MEDS: QUEtiapine FUM 100 MG TAB PO SCH (20:37)
[2018-09-29 02:02] VITALS: BP 113/68
[2018-09-29] MEDS: MULTIVITAMINS TAB PO SCH (08:28)
[2018-09-29] MEDS: DIVALPROEX SOD ER 500 MG TABSR PO SCH (08:28)
[2018-09-29] MEDS: LOSARTAN POTASSIUM 50 MG TAB PO SCH (08:28)
[2018-09-29] MEDS: metFORMIN HCL 500 MG TAB PO SCH ×2 (08:28→17:02)
[2018-09-29] MEDS: LITHIUM CARBONATE 300 MG CAP PO SCH ×2 (08:28→20:40)
[2018-09-29] MEDS: PRAVASTATIN SOD 20 MG TAB PO SCH (08:28)
--- NOTE | 2018-09-29 09:44 | NUR ---
Pt confronted about poor boundaries with other patients during treatment team. Became visibly angry and agitated, states, "I'm on a mission from God."
--- NOTE | 2018-09-29 14:30 | BHS Progress Note ---
[facility] - Subjective Progress Notes Subjective Pt seen in treatment team with his and brother both attending by speaker phone. Pt still labile, still not sleeping well, still hyperreligious, says he is on a mission from God to help everyone on this unit-- offerred another patient a ride to [employer], offerred a homeless person to stay at his house-- pt's made it clear that he is still manic above his baseline and that they cannot afford to have people stay or give them rides. She also confronted him about a bottle of whiskey she found in basement-- he admits to 2-3 shots per week and 2 beers 5 nights a week. We advised him that any alcohol at all is contraindicated with bipolar disorder and medications. Pt is connected with meetings in [place] which he attends once a week. Pt got angry and irritable briefly with his and his brother, complaining that he does not feel supported by them, that brother (Lacie) doesn't stay in touch, that won't attend [employer] with him. Pt slept restlessly last night, was up once, then woke up for good at 4 am. Will increase standing dose seroquel to 200 mg. Continue lithium at 600 mg BID, with level ordered for tomorrow am. Suicidal Ideation: None Homicidal Ideation: None S - Objective Physical Exam Vital Signs Vital Signs 09/28/18 09/29/18 17:58 02:02 Temp 97.9 Pulse 89 Resp 18 B/P (MAP) 113/68 (83) Pulse Ox 92 O2 Delivery Room Air Muscle Strength and Tone: WNL Gait and Station: Steady [facility] Medications Reviewed: Side Effects, Benefits of Medication, Risks Allergies Reviewed: Yes Mental Status Exam General Appearance: Casual, Well Groomed, Good Eye Contact, Cooperative, Good Interaction, Psychomotor Agitation (mild, angry with family) Speech: Clear, Spontaneous, Normal Rate, Normal Rhythm, Normal Volume, Normal Tone Mood: Dysthmic/Depressed Affect: Sad, Agitated, Other (labile) Thought Process: Organized, Logical, Goal Directed Thought Content: No Suicidal Ideation, No Homicidal Ideation; Delusions (on a mission from God); No Auditory Halllucinations, No Visual Hallucinations, No Thought Broadcasting, No Ideas of Reference, No Obsessions, No Compulsions, No Other Sensorium: Clear Cognition: Alert & Oriented-Person, Alert & Oriented-Place, Alert & Oriented- Time, Oxwgg-Nojnmenc-Xaeanvsid Memory: Immediate, Recent, Remote Intelligence: Average Insight Judgment: Good S Assessment and Plan Gkcm-ni-Bxmh Encounter Date: Sep 29, 2018 Dkbn-fs-Kter Encounter Time: 09:00 S Plan: Necessary Precautions, Individual/Group Therapy, Admin/Titrate Meds, Educate Patient Tobacco Medications: Not Appropriate Condition Multpiple Antipsychotics Used: No Problems: (1) Bipolar 1 disorder with moderate poli Status: Acute (2) Diabetes mellitus type 2 in obese Status: Chronic (3) Obstructive sleep apnea on CPAP Status: Chronic VLADIMIR FRITZ MD Sep 29, 2018 14:30
--- NOTE | 2018-09-29 20:20 | NUR ---
REPORT FROM ARABELLA/RN. WILL ASSUME CARE OF PT AT THIS TIME. PT WALKING AROUND UNIT, SETTLED DOWN IN TV ROOM AT THIS TIME. NO DISTRESS NOTED AT THIS TIME.
[2018-09-29] MEDS: hydrOXYzine PAMOATE 25 MG CAP PO SCH (20:40)
[2018-09-29] MEDS: QUEtiapine FUM 100 MG TAB PO SCH (20:40)
[2018-09-30 05:34] VITALS: BP 114/71
[2018-09-30] MEDS: metFORMIN HCL 500 MG TAB PO SCH ×2 (08:36→17:02)
[2018-09-30] MEDS: MULTIVITAMINS TAB PO SCH (08:36)
[2018-09-30] MEDS: LOSARTAN POTASSIUM 50 MG TAB PO SCH (08:36)
[2018-09-30] MEDS: PRAVASTATIN SOD 20 MG TAB PO SCH (08:36)
[2018-09-30] MEDS: LITHIUM CARBONATE 300 MG CAP PO SCH ×2 (08:36→21:03)
--- NOTE | 2018-09-30 20:18 | NUR ---
REPORT FROM RODOLFO/RN. WILL ASSUME CARE OF PT AT THIS TIME. PT CURRENTLY IN ROOM. DENIES NEEDS OR COMPLAINTS AT THIS TIME.
--- NOTE | 2018-09-30 21:01 | BHS Progress Note ---
[facility] - Subjective Progress Notes Subjective Pt seen in conference room with team. 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 very amped up to show us his plans. Taking notes in a notebook as we talked, though they are disorganized with phrases scattered all over the pages. Tolerating lithium well-- denies n/v/d/tremor. [place] level today is within therapeutic range at 0.8. Slept better last night with increased dose of seroquel. Will hold treatment team tomorrow with and brother; continue current medications. Suicidal Ideation: None Homicidal Ideation: None [facility] - Objective Physical Exam Vital Signs Vital Signs 09/28/18 09/30/18 17:58 05:34 Temp 98.3 Pulse 93 Resp 18 B/P (MAP) 114/71 (85) Pulse Ox 91 O2 Delivery Room Air Muscle Strength and Tone: WNL Gait and Station: Steady [facility] Medications Reviewed: Side Effects, Benefits of Medication, Risks Allergies Reviewed: Yes Mental Status Exam General Appearance: Casual, Well Groomed, Good Eye Contact, Cooperative, Good I nteraction, Psychomotor Agitation (hypergraphia) Speech: Clear, Spontaneous, Normal Rate, Normal Rhythm, Normal Volume, Normal Tone Mood: Hyperthymic Affect: Agitated, Other (labile) Thought Process: Organized, Logical, Goal Directed Thought Content: No Suicidal Ideation, No Homicidal Ideation; Delusions (on a mission from God); No Auditory Halllucinations, No Visual Hallucinations, No Thought Broadcasting, No Ideas of Reference, No Obsessions, No Compulsions, No Other Sensorium: Clear Cognition: Alert & Oriented-Person, Alert & Oriented-Place, Alert & Oriented- Time, Uawtd-Nmixedlo-Cyrtntuit Memory: Immediate, Recent, Remote Intelligence: Average Insight Judgment: Fair [facility] Assessment and Plan Iult-wg-Chhp Encounter Date: Sep 30, 2018 Knuv-sz-Siwl Encounter Time: 10:00 [facility] Plan: Necessary Precautions, Individual/Group Therapy, Admin/Titrate Meds, Educate Patient Tobacco Medications: Not Appropriate Condition Multpiple Antipsychotics Used: No Problems: (1) Bipolar 1 disorder with moderate poli Status: Acute (2) Diabetes mellitus type 2 in obese Status: Chronic (3) Obstructive sleep apnea on CPAP Status: Chronic VLADIMIR FRITZ MD Sep 30, 2018 21:01
[2018-09-30] MEDS: QUEtiapine FUM 100 MG TAB PO SCH (21:03)
[2018-09-30] MEDS: hydrOXYzine PAMOATE 25 MG CAP PO SCH (21:03)
[2018-10-01 06:14] VITALS: BP 110/58
[2018-10-01] MEDS: LITHIUM CARBONATE 300 MG CAP PO SCH ×2 (08:56→20:58)
[2018-10-01] MEDS: LOSARTAN POTASSIUM 50 MG TAB PO SCH (08:56)
[2018-10-01] MEDS: metFORMIN HCL 500 MG TAB PO SCH ×2 (08:56→17:48)
[2018-10-01] MEDS: MULTIVITAMINS TAB PO SCH (08:57)
[2018-10-01] MEDS: PRAVASTATIN SOD 20 MG TAB PO SCH (09:00)
--- NOTE | 2018-10-01 14:51 | BHS Progress Note ---
[facility] - Subjective Progress Notes Subjective Pt seen in treatment team with his attending and his brother on speaker phone. Pt continues to slowly improve-- his notes he is starting to be able to sit still and visit with her, rather than getting up and pacing around the unit. His hypergraphia is still present but slowing down. He denies ah, and says he slept well last night. We discussed importance of exercise and nutrition to prevent weight gain with his current medications-- and that he needs to lose weight regardless, especially given diabetes and hypertension. We have set a tentative DC date for Saturday, and we discussed out-patient follow up. Advised to get rid of old bottles of prescription medication in the house, to avoid confusion. Will fax scripts to local pharmacy tomorrow to make sure they have the medications available for pt on Saturday. Continue current tx plan. Suicidal Ideation: None Homicidal Ideation: None [facility] - Objective Physical Exam Vital Signs Vital Signs 09/28/18 10/01/18 17:58 06:14 Temp 98.6 Pulse 76 Resp 18 B/P (MAP) 110/58 (75) Pulse Ox 92 O2 Delivery Room Air Muscle Strength and Tone: WNL Gait and Station: Steady [facility] Medications Reviewed: Side Effects, Benefits of Medication, Risks Allergies Reviewed: Yes Mental Status Exam General Appearance: Casual, Well Groomed, Good Eye Contact, Cooperative, Polite, Good Interaction, Psychomotor Agitation (still moderate hypergraphia) Speech: Clear, Spontaneous, Normal Rate, Normal Rhythm, Normal Volume, Normal Tone Mood: Euthymic, Hyperthymic Affect: Calm, Other (labile) Thought Process: Organized, Logical, Goal Directed Thought Content: No Suicidal Ideation, No Homicidal Ideation, No Delusions, No Auditory Halllucinations, No Visual Hallucinations, No Thought Broadcasting, No Ideas of Reference, No Obsessions, No Compulsions, No Other Sensorium: Clear Cognition: Alert & Oriented-Person, Alert & Oriented-Place, Alert & Oriented- Time, Hxkrv-Uwvrspot-Bzkmscmmw Memory: Immediate, Recent, Remote Intelligence: Average Insight Judgment: Fair [facility] Assessment and Plan Ootd-ft-Zjih Encounter Date: Oct 01, 2018 Dehu-cz-Neis Encounter Time: 09:30 [facility] Plan: Necessary Precautions, Individual/Group Therapy, Admin/Titrate Meds, Educate Patient Tobacco Medications: Not Appropriate Condition Multpiple Antipsychotics Used: No Problems: (1) Bipolar 1 disorder with moderate poli Status: Acute (2) Diabetes mellitus type 2 in obese Status: Chronic (3) Obstructive sleep apnea on CPAP Status: Chronic VLADIMIR FRITZ MD Oct 01, 2018 14:51
[2018-10-01] MEDS: hydrOXYzine PAMOATE 25 MG CAP PO SCH (20:58)
[2018-10-01] MEDS: QUEtiapine FUM 100 MG TAB PO SCH (20:58)
[2018-10-02 05:40] VITALS: BP 120/72
[2018-10-02] MEDS: MULTIVITAMINS TAB PO SCH (08:24)
[2018-10-02] MEDS: metFORMIN HCL 500 MG TAB PO SCH ×2 (08:24→17:08)
[2018-10-02] MEDS: PRAVASTATIN SOD 20 MG TAB PO SCH (08:24)
[2018-10-02] MEDS: LITHIUM CARBONATE 300 MG CAP PO SCH ×2 (08:24→20:22)
[2018-10-02] MEDS: LOSARTAN POTASSIUM 50 MG TAB PO SCH (08:25)
--- NOTE | 2018-10-02 16:00 | BHS Progress Note ---
S - Subjective Progress Notes Subjective Pt seen in conference room with team. Pt is doing pretty well, he slept well last night, his hypergraphia and euphoria are resolving, he says "I feel less busy." Tolerating medications well without side effects, denies n/v/d. Has minor tremor. We are planning for discharge tomorrow, will come for treatment team in am. I phoned his scripts in to [facility] in [place]. Pt is working on attending groups and finishing up his wellness and recovery plan. Will check labs in am including lithium level. I spoke with Dr. Desai who will be following his psych meds. Suicidal Ideation: None Homicidal Ideation: None S - Objective Physical Exam Vital Signs Vital Signs 10/02/18 05:40 Temp 97.8 Pulse 76 Resp 15 B/P (MAP) 120/72 (88) Pulse Ox 90 O2 Delivery Room Air Muscle Strength and Tone: WNL Gait and Station: Steady [facility] Medications Reviewed: Side Effects, Benefits of Medication, Risks Allergies Reviewed: Yes Mental Status Exam General Appearance: Casual, Well Groomed, Good Eye Contact, Cooperative, Polite, Good Interaction, Psychomotor Agitation (still moderate hypergraphia) Speech: Clear, Spontaneous, Normal Rate, Normal Rhythm, Normal Volume, Normal Tone Mood: Euthymic, Hyperthymic Affect: Calm, Other (labile) Thought Process: Organized, Logical, Goal Directed Thought Content: No Suicidal Ideation, No Homicidal Ideation, No Delusions, No Auditory Halllucinations, No Visual Hallucinations, No Thought Broadcasting, No Ideas of Reference, No Obsessions, No Compulsions, No Other Sensorium: Clear Cognition: Alert & Oriented-Person, Alert & Oriented-Place, Alert & Oriented- Time, [id number]-[id number] Memory: Immediate, Recent, Remote Intelligence: Average Insight Judgment: Fair [facility] Assessment and Plan Xeik-mm-Pyuo Encounter Date: Oct 02, 2018 Cozb-on-Kluw Encounter Time: 09:30 [facility] Plan: Necessary Precautions, Individual/Group Therapy, Admin/Titrate Meds, Educate Patient Tobacco Medications: Not Appropriate Condition Multpiple Antipsychotics Used: No Problems: (1) Bipolar 1 disorder with moderate poli Status: Acute (2) Diabetes mellitus type 2 in obese Status: Chronic (3) Obstructive sleep apnea on CPAP Status: Chronic VLADIMIR FRITZ MD Oct 02, 2018 16:00
[2018-10-02] MEDS: hydrOXYzine PAMOATE 25 MG CAP PO SCH (20:22)
[2018-10-02] MEDS: QUEtiapine FUM 100 MG TAB PO SCH (20:24)
[2018-10-03 05:32] VITALS: BP 123/69
[2018-10-03] MEDS: LOSARTAN POTASSIUM 50 MG TAB PO SCH (08:31)
[2018-10-03] MEDS: metFORMIN HCL 500 MG TAB PO SCH (08:31)
[2018-10-03] MEDS: PRAVASTATIN SOD 20 MG TAB PO SCH (08:31)
[2018-10-03] MEDS: MULTIVITAMINS TAB PO SCH (08:31)
[2018-10-03] MEDS: LITHIUM CARBONATE 300 MG CAP PO SCH (08:32)
[2018-10-03] MEDS ORDERED: LITH600C6 PO (09:56)
[2018-10-03] MEDS ORDERED: HYDR25CA83 PO (09:57)
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
== END 2018-10-03 10:13 | disposition home or self-care (01) | DRG 885 ==
LOC: BHS 11:30
PROVIDERS: ADMIT Psychiatry & Neurology Psychiatry; ATTEND Psychiatry & Neurology Psychiatry
DX: F30.2 Manic episode, severe with psychotic symptoms (principal); E11.9 Type 2 diabetes mellitus without complications; G47.33 Obstructive sleep apnea (adult) (pediatric); G47.00 Insomnia, unspecified; I10 Essential (primary) hypertension; Z99.81 Dependence on supplemental oxygen; Z79.84 Long term (current) use of oral hypoglycemic drugs
CPT/HCPCS: 36415; 36416; 80178; 82040; 82247; 82310; 82374; 82435; 82565; 82947; 82948; 84075; 84132; 84155; 84295; 84450; 84460; 84520; Q0177